=== PATIENT | female | born 1945 | race Caucasian/White ===

== ENCOUNTER → 2017-05-17 | Day surgery (SDC) | payer MEDICARE ==
[~2017-05-17] MED LIST: ACETAMINOPHEN650 M3 PO; ALENDRONATE SOD35 MG PO; AMLODIPINE BESYL5 MG PO; ASPIRIN EC81 M1 PO; BIOTIN5000 MCG; CALCIUM 600 +1 EAC9 PO; CALCIUM500 M1; FISH OIL 1,2001 EAC3 PO; GLUCOSAMINE CH1 EAC1 PO; LASIX20 MG PO; LISINOPRIL20 MG PO; METHIMAZOLE5 MG PO; MULTIVITAMINS1 EAC3 PO; POTASSIUM CHLO10 ME1 PO; REMICADE IV; SIMVASTATIN20 MG PO; VITAMIN D1000 UNIT PO
--- NOTE | ~2017-05-17 | OR ---
Unit #: [id number] #: [id number] Patient: MADHAVI DELANEY [id number] [address] [address] [id number] O MR#: [id number] NAME: MADHAVI DELANEY ROOM: Date of Procedure: 05/17/2017 Admission Date: 05/17/2017 Surgeon: Sanjeev Tinoco M.D. : 1945 Attending Physician: Sanjeev Tinoco M.D. Primary Care Physician: Jamie Hall M.D. OPERATIVE REPORT PREOPERATIVE DIAGNOSES Back pain, radiculopathy, degenerative joint disease, degenerative spine disease. POSTOPERATIVE DIAGNOSES Back pain, radiculopathy, degenerative joint disease, degenerative spine disease. PROCEDURE PERFORMED Lumbar epidural steroid injection with fluoroscopic guidance for needle localization. INDICATIONS FOR PROCEDURE The patient is a 71-year-old female with right lower extremity greater than low back pain this is a problem for about 8 months or so. Following some exercise, it is settled temporarily and significantly with oral steroids, had resurgence of the pain now. Based on history, pathology, symptomatology conservative modalities, plan is for trial of epidural steroids. Risks and benefits of all reviewed. DESCRIPTION OF PROCEDURE The patient was placed in a seated position. Standard monitors were applied. Sterile prep and drape of the lumbar area were performed. The skin then at the L4-L5 level was localized with 1% lidocaine. An 18-gauge Aleatead needle was then advanced via loss of resistance technique and fluoroscopic guidance in toward the epidural space. After confirming proper positioning with fluoroscopy and radiographic contrast, 80 mg of Depo-Medrol and 4 mL of 0.125% bupivacaine were deposited. The patient tolerated the procedure otherwise now and was discharged to recovery room in stable condition. Dictated by... Sanjeev Tinoco M.D. LHP/modl TD: 05/17/2017 14:38 JOB #: [id number] Unit #: [id number] #: [id number] Patient: MADHAVI DELANEY OPERATIVE REPORT Page 1 of 1 X Sanjeev Tinoco MD X PROCEDURE OPERATIVE NOTE
== END | disposition home or self-care (01) ==
LOC: CCSC 08:03
DX: M51.16 Intervertebral disc disorders with radiculopathy, lumbar region (principal); M47.27 Other spondylosis with radiculopathy, lumbosacral region; I25.2 Old myocardial infarction; I10 Essential (primary) hypertension; M06.9 Rheumatoid arthritis, unspecified; M19.90 Unspecified osteoarthritis, unspecified site; Z88.8 Allergy status to other drugs, medicaments and biological substances; Z79.82 Long term (current) use of aspirin; Z79.891 Long term (current) use of opiate analgesic; Z79.899 Other long term (current) drug therapy
CPT/HCPCS: J1040; J2250